=== PATIENT | male | born 1950 ===

== ENCOUNTER 2018-05-26 16:55 | Emergency (ER) | payer MEDICARE, OTHER ==
[2018-05-26 17:10] VITALS: BP 126/74; PULSE 78; RESP 18; TEMP 98.6; O2SAT 99
[2018-05-26] MEDS ORDERED: Neomycin/Polymyxin/Hydrocort Otic Soln BOTTLE AD STA (18:16)
--- NOTE | 2018-05-26 18:52 | C.PDOC ---
History Of Present Illness 67 y/o male presents to ED for evaluation of right ear pain for the last 6 days. Denies fever, chills, ear discharge, or any other complaints at this time. Time Seen by Provider: 05/26/18 17:22 Chief Complaint (Nursing): ENT Problem History Per: Patient History/Exam Limitations: None Onset/Duration Of Symptoms: Days (6) Current Symptoms Are (Timing): Still Present Quality (Ear): Pain W/Touch. denies: Swelling, Discharge, Foreign Body Past Medical History Reviewed: Historical Data, Nursing Documentation, Vital Signs Vital Signs: Last Vital Signs Temp 98.6 F 05/26/18 17:07 Pulse 78 05/26/18 17:07 Resp 18 05/26/18 17:07 BP 126/74 05/26/18 17:07 Pulse Ox 99 05/26/18 18:52 - Medical History PMH: HTN - [facility] Procedures COLONOSCOPY (04/06/14) Family History: States: Unknown Family Hx - Social History Hx Alcohol Use: No Hx Substance Use: No - Immunization History Hx Influenza Vaccination: No Hx Pneumococcal Vaccination: No Review Of Systems Except As Marked, All Systems Reviewed And Found Negative. Constitutional: Negative for: Fever, Chills ENT: Positive for: Ear Pain (right). Negative for: Ear Discharge, Nose Discharge, Nose Congestion, Throat Pain Respiratory: Negative for: Cough, Sputum Skin: Negative for: Rash Physical Exam - Physical Exam Appears: Non-toxic, No Acute Distress Skin: Normal Color, Warm, Dry Head: Atraumatic, Normacephalic Eye(s): bilateral: Normal Inspection Ear(s): Left: Normal, Right: Other (swelling and erythema to external ear canal , no drainage, no mastoid tenderness) Nose: Normal Oral Mucosa: Moist Throat: Normal, No Erythema, No Exudate, No Drooling Neck: Normal ROM, Supple Lymphatic: Adenopathy (mild preauricular adenopathy) Extremity: Normal ROM Neurological/Psych: Oriented x3, Normal Speech ED Course And Treatment O2 Sat by Pulse Oximetry: 99 (RA) Pulse Ox Interpretation: Normal Progress Note: Fingerstick glucose ordered and reviewed. Pt was treated with Clindamycin, Motrin, and Cortisporin. Patient is being discharged home with instructions to follow up with ENT specialist in 1-2 days. Disposition - Disposition Referrals: [place] Eduardo MD [Staff Provider] - Disposition: HOME/ ROUTINE Disposition Time: 18:49 Condition: STABLE Additional Instructions: Follow up with PMD within 1-2 days. Return to ED if feel worse. 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 - Scribe Statement The provider has reviewed the documentation as recorded by the Scribe KP All medical record entries made by the Scribe were at my direction and personally dictated by me. I have reviewed the chart and agree that the record accurately reflects my personal performance of the history, physical exam, medical decision making, and the department course for this patient. I have also personally directed, reviewed, and agree with the discharge instructions and disposition.
== END 2018-05-26 19:04 | disposition home or self-care (01) ==
LOC: C.ER 16:55
DX: H60.91 Unspecified otitis externa, right ear (principal)

== ENCOUNTER 2018-10-16 08:42 | Outpatient (CLI) | payer MEDICARE, SELFPAY | END 2018-10-16 08:43 | disposition home or self-care (01) | LOC: C.CARD 08:42 | DX: R06.02 Shortness of breath (principal) ==